=== PATIENT | male | born 1940 | race Caucasian/White ===

== ENCOUNTER 2020-09-08 11:17 | Inpatient (IN) | payer MEDICARE, OTHER ==
[~2020-09-08] VITALS: Ht 180.3 cm; Wt 72.6 kg
[~2020-09-08 11:17] MED LIST: ANORO ELLIPTA1 EACH INH; DRONABINOL5 MG PO; FLOMAX 0.4 MG0.4 MG PO; FLONASE 0.05% N16 GM; FLUNISOLIDE25 ML; HYDROCODON-ACE1 EAC6 PO; IPRAT-ALBUT 0.5-3 ML INH; LEVAQUIN750 MG PO; LOVENOX30 MG/0.3 SQ; MONTELUKAST SOD10 MG PO; NORCO 5-325 TA1 EACH PO; PRAVACHOL40 MG PO; PROSCAR 5 MG TAB5 MG PO; VENTOLIN HFA 66.7 GM INH; VIIBRYD10 MG PO; WALKER
[2020-09-08 14:58] LABS: HEMOGLOBIN 14.3 gm/dl (14.0-17.5)
[2020-09-08 14:59] LABS: RED BLOOD COUNT 4.53 M/UL (4.20-5.50)
[2020-09-08 16:23] LABS: BUN/CREATININE RATIO 13 (0-10)
[2020-09-09 03:38] LABS: HEMOGLOBIN 14.5 gm/dl (14.0-17.5); RED BLOOD COUNT 4.84 M/UL (4.20-5.50); WHITE BLOOD COUNT 5.6 K/UL (4.5-11.0)
[2020-09-09 04:07] LABS: BUN/CREATININE RATIO 16 (0-10)
[2020-09-09 09:37] LABS: BUN/CREATININE RATIO 16 (0-10)
[2020-09-10 08:32] LABS: RED BLOOD COUNT 4.75 M/UL (4.20-5.50); WHITE BLOOD COUNT 6.6 K/UL (4.5-11.0)
[2020-09-10 09:39] LABS: BUN/CREATININE RATIO 25 (0-10)
[2020-09-11 03:50] LABS: HEMOGLOBIN 14.1 gm/dl (14.0-17.5); RED BLOOD COUNT 4.48 M/UL (4.20-5.50)
[2020-09-11 03:53] LABS: WHITE BLOOD COUNT 9.8 K/UL (4.5-11.0)
[2020-09-11 04:19] LABS: BUN/CREATININE RATIO 35 (0-10)
[2020-09-12 05:15] LABS: HEMOGLOBIN 14.6 gm/dl (14.0-17.5); RED BLOOD COUNT 4.65 M/UL (4.20-5.50); WHITE BLOOD COUNT 9.3 K/UL (4.5-11.0)
[2020-09-12 05:37] LABS: BUN/CREATININE RATIO 39 (0-10)
--- NOTE | 2020-09-12 18:17 | NUR ---
RESP. STATUS - PT TAKEN OFF BIPAP FOR MEALS THIS SHIFT AND PLACED ON AIRVO. O2 SAT 81-87% ON AIRVO. MD AWARE. PULMON AWARE.
[2020-09-13 07:25] LABS: HEMOGLOBIN 15.3 gm/dl (14.0-17.5); RED BLOOD COUNT 4.87 M/UL (4.20-5.50); WHITE BLOOD COUNT 10.1 K/UL (4.5-11.0)
[2020-09-13 08:39] LABS: BUN/CREATININE RATIO 35 (0-10)
[2020-09-14 04:53] LABS: HEMOGLOBIN 15.5 gm/dl (14.0-17.5); RED BLOOD COUNT 4.92 M/UL (4.20-5.50); WHITE BLOOD COUNT 11.6 K/UL (4.5-11.0)
[2020-09-14 05:02] LABS: BUN/CREATININE RATIO 44 (0-10)
[2020-09-15 07:58] LABS: RED BLOOD COUNT 5.14 M/UL (4.20-5.50); WHITE BLOOD COUNT 12.6 K/UL (4.5-11.0)
[2020-09-15 08:11] LABS: BUN/CREATININE RATIO 44 (0-10)
[2020-09-16 04:11] LABS: HEMOGLOBIN 17.1 gm/dl (14.0-17.5); RED BLOOD COUNT 5.38 M/UL (4.20-5.50); WHITE BLOOD COUNT 10.5 K/UL (4.5-11.0)
[2020-09-16 04:33] LABS: BUN/CREATININE RATIO 51 (0-10)
[2020-09-16] MEDS ORDERED: ESCITALOPRAM OX20 MG PO (14:35)
[2020-09-18 05:41] LABS: HEMOGLOBIN 17.5 gm/dl (14.0-17.5); RED BLOOD COUNT 5.56 M/UL (4.20-5.50)
[2020-09-18 06:02] LABS: BUN/CREATININE RATIO 79 (0-10)
[2020-09-19 05:39] LABS: HEMOGLOBIN 17.3 gm/dl (14.0-17.5); RED BLOOD COUNT 5.49 M/UL (4.20-5.50); WHITE BLOOD COUNT 9.5 K/UL (4.5-11.0)
[2020-09-19 06:09] LABS: BUN/CREATININE RATIO 84 (0-10)
[2020-09-20 03:51] LABS: HEMOGLOBIN 17.1 gm/dl (14.0-17.5); RED BLOOD COUNT 5.71 M/UL (4.20-5.50)
[2020-09-20 04:22] LABS: BUN/CREATININE RATIO 80 (0-10)
[2020-09-21 06:14] LABS: HEMOGLOBIN 15.4 gm/dl (14.0-17.5)
[2020-09-21 06:28] LABS: BUN/CREATININE RATIO 78 (0-10)
[2020-09-21 06:48] LABS: RED BLOOD COUNT 4.91 M/UL (4.20-5.50)
[2020-09-21 06:49] LABS: WHITE BLOOD COUNT 18.4 K/UL (4.5-11.0)
[2020-09-22 05:29] LABS: HEMOGLOBIN 14.2 gm/dl (14.0-17.5); RED BLOOD COUNT 4.54 M/UL (4.20-5.50)
[2020-09-22 05:37] LABS: WHITE BLOOD COUNT 13.7 K/UL (4.5-11.0)
[2020-09-22 06:09] LABS: BUN/CREATININE RATIO 87 (0-10)
[2020-09-23 05:22] LABS: HEMOGLOBIN 12.9 gm/dl (14.0-17.5); RED BLOOD COUNT 4.16 M/UL (4.20-5.50)
[2020-09-23 05:33] LABS: BUN/CREATININE RATIO 93 (0-10)
[2020-09-23 15:14] LABS: HEMATOCRIT 39.9 % (37.5-51.0)
[2020-09-24 05:10] LABS: HEMOGLOBIN 12.4 gm/dl (14.0-17.5); RED BLOOD COUNT 3.99 M/UL (4.20-5.50)
[2020-09-24 05:12] LABS: WHITE BLOOD COUNT 13.6 K/UL (4.5-11.0)
[2020-09-24 05:35] LABS: BUN/CREATININE RATIO 86 (0-10)
--- NOTE | 2020-09-24 10:00 | NUR ---
1000 ATTEMPTED TO CALL FAMILY BACK TO SPEAK WITH THEM NO ANSWER
[2020-09-24 15:14] LABS: HEPARIN INDUCED PLATELET AB 0.114 OD (0.000-0.400)
[2020-09-24 18:12] LABS: BUN/CREATININE RATIO 81 (0-10)
[2020-09-25 00:38] LABS: BUN/CREATININE RATIO 68 (0-10)
[2020-09-25 05:12] LABS: HEMOGLOBIN 11.3 gm/dl (14.0-17.5); RED BLOOD COUNT 3.62 M/UL (4.20-5.50); WHITE BLOOD COUNT 13.9 K/UL (4.5-11.0)
[2020-09-25 05:30] LABS: BUN/CREATININE RATIO 76 (0-10)
[2020-09-25 16:40] LABS: BUN/CREATININE RATIO 82 (0-10)
[2020-09-26 05:27] LABS: HEMOGLOBIN 10.6 gm/dl (14.0-17.5); RED BLOOD COUNT 3.49 M/UL (4.20-5.50)
[2020-09-26 05:45] LABS: BUN/CREATININE RATIO 76 (0-10)
[2020-09-27 07:29] LABS: HEMOGLOBIN 10.5 gm/dl (14.0-17.5); RED BLOOD COUNT 3.45 M/UL (4.20-5.50); WHITE BLOOD COUNT 10.7 K/UL (4.5-11.0)
[2020-09-27 07:44] LABS: BUN/CREATININE RATIO 94 (0-10)
== END 2020-09-28 10:15 | disposition expired | DRG 207 ==
LOC: ER1 11:17 → CDU 20:53 → CCU 20:53
PROVIDERS: Internal Medicine; Internal Medicine Infectious Disease; Internal Medicine Pulmonary Disease; Registered Nurse; Student in an Organized Health Care Education/Training Program; ADMIT Internal Medicine
PROC: XW033E5 Introduction of Remdesivir Anti-infective into Peripheral Vein, Percutaneous Approach, New Technology Group 5 (ICD-10-PCS; 2020-09-08)
PROC: 8E0ZXY6 Isolation (ICD-10-PCS; 2020-09-08)
PROC: 3E0333Z Introduction of Anti-inflammatory into Peripheral Vein, Percutaneous Approach (ICD-10-PCS; 2020-09-09)
PROC: 5A09457 Assistance with Respiratory Ventilation, 24-96 Consecutive Hours, Continuous Positive Airway Pressure (ICD-10-PCS; 2020-09-12)
PROC: B24BZZ4 Ultrasonography of Heart with Aorta, Transesophageal (ICD-10-PCS; 2020-09-15)
PROC: 5A0945A Assistance with Respiratory Ventilation, 24-96 Consecutive Hours, High Flow/Velocity Cannula (ICD-10-PCS; 2020-09-18)
PROC: 5A1955Z Respiratory Ventilation, Greater than 96 Consecutive Hours (ICD-10-PCS; principal; 2020-09-19)
PROC: 0BH17EZ Insertion of Endotracheal Airway into Trachea, Via Natural or Artificial Opening (ICD-10-PCS; 2020-09-19)
PROC: 3E033XZ Introduction of Vasopressor into Peripheral Vein, Percutaneous Approach (ICD-10-PCS; 2020-09-19)
PROC: 02HV33Z Insertion of Infusion Device into Superior Vena Cava, Percutaneous Approach (ICD-10-PCS; 2020-09-20)
DX: U07.1 COVID-19 (principal); J12.82 Pneumonia due to coronavirus disease 2019; R65.21 Severe sepsis with septic shock; Z66 Do not resuscitate; Z51.5 Encounter for palliative care; J80 Acute respiratory distress syndrome; E43 Unspecified severe protein-calorie malnutrition; J15.8 Pneumonia due to other specified bacteria; A41.89 Other specified sepsis; E87.0 Hyperosmolality and hypernatremia; E87.3 Alkalosis; T38.0X5A Adverse effect of glucocorticoids and synthetic analogues, initial encounter; J43.9 Emphysema, unspecified; E78.5 Hyperlipidemia, unspecified; Z96.698 Presence of other orthopedic joint implants; J30.9 Allergic rhinitis, unspecified; E86.0 Dehydration; N40.1 Benign prostatic hyperplasia with lower urinary tract symptoms; R33.8 Other retention of urine; D75.82 Heparin induced thrombocytopenia (HIT); E83.39 Other disorders of phosphorus metabolism; E83.51 Hypocalcemia; E87.5 Hyperkalemia; D64.9 Anemia, unspecified; Z87.891 Personal history of nicotine dependence; Z87.81 Personal history of (healed) traumatic fracture; Z80.1 Family history of malignant neoplasm of trachea, bronchus and lung; Z80.42 Family history of malignant neoplasm of prostate; Z80.2 Family history of malignant neoplasm of other respiratory and intrathoracic organs; Z88.2 Allergy status to sulfonamides; Z79.4 Long term (current) use of insulin; Z88.1 Allergy status to other antibiotic agents; Z68.22 Body mass index [BMI] 22.0-22.9, adult
CPT/HCPCS: ECHO; 0240U; 31500; 36415; 36600; 71045; 80048; 80053; 81001; 82550; 82553; 82607; 82728; 82747; 82803; 82962; 83605; 83615; 83735; 83880; 83921; 84100; 84132; 84484; 85007; 85025; 85027; 85379; 85384; 85610; 85730; 86140; 87040; 87070; 87077; 87081; 87086; 87186; 87205; 93005; 93306; 94002; 94003; 94640; 94660; 94664; 94760; 96374; 96375; 99285; A6212; C1751; G0103; J0456; J0610; J0692; J1100; J1205; J1650; J1652; J1940; J2060; J2185; J2250; J2270; J2704; J3010; J3370; J7030; J7040; J7050; Q9967; U0002